=== PATIENT | male | born 1985 | race Hispanic/Latino ===

== ENCOUNTER → 2020-06-15 | Outpatient (CLI) | payer OTHER ==
[~2020-06-15] MED LIST: GADODIAMIDE 10 MMOL/20 ML VIAL IV ONE
== END | disposition home or self-care (01) ==
LOC: RAH 13:40
PROVIDERS: ATTEND Internal Medicine
DX: H61.111 Acquired deformity of pinna, right ear (principal); H91.91 Unspecified hearing loss, right ear
CPT/HCPCS: 70553 ×2; A9579